=== PATIENT | female | born 1990 | race Caucasian/White ===

== ENCOUNTER 2023-08-22 13:37 | Outpatient (CLI) | payer OTHER ==
[2023-08-22 15:30] LABS: THYROID STIMULATING HORMONE 1.71 uIU/mL (0.34-5.60)
[2023-08-22 20:10] LABS: ESTIMATED AVERAGE GLUCOSE 105 mg/dL (70-100); HEMOGLOBIN A1c% 5.3 % (4.27-6.07)
[2023-08-25 16:08] LABS: BETA-2 GLYCOPROTEIN I IGG <9 (0-20); BETA-2 GLYCOPROTEIN I IGM <9 (0-32); CARDIOLIPIN IGG <9 GPL U/mL (0-14); CARDIOLIPIN IGM <9 MPL U/mL (0-12)
== END 2023-08-22 13:38 | disposition home or self-care (01) ==
LOC: LAB 13:37
PROVIDERS: ATTEND Obstetrics & Gynecology
DX: N96 Recurrent pregnancy loss (principal)
CPT/HCPCS: 36415; 83036; 84443; 85598; 85613; 85732; 86146; 86147

== ENCOUNTER 2023-12-21 08:00 | Outpatient (CLI) | payer OTHER ==
[2023-12-21 17:16] LABS: BILIRUBIN,URINE NEGATIVE (NEGATIVE); GLUCOSE, URINE (UA) NEGATIVE (NEGATIVE); KETONES,URINE (UA) NEGATIVE (NEGATIVE); LEUKOCYTE ESTERASE, URINE TRACE (NEGATIVE); NITRITE,URINE NEGATIVE (NEGATIVE); OCCULT BLOOD,URINE NEGATIVE (NEGATIVE); PROTEIN,URINE NEGATIVE (NEGATIVE); UROBILINOGEN,URINE 0.2 (NORMAL) E.U./dL (NORMAL)
[2023-12-21 17:18] LABS: CLARITY,URINE CLOUDY (CLEAR)
[2023-12-21 17:44] LABS: AMORPHOUS SEDIMENT,UR Marked /LPF; BACTERIA,URINE Many /HPF (None Seen); MUCUS,URINE Marked Strands; RBC,URINE 0-5 /HPF (0-5); SQUAMOUS EPITHELIAL CELL,UR MANY Squamous (<= Few)
[2023-12-22 08:47] LABS: CREATININE,URINE 216.3 mg/dL; PROTEIN/CREATININE RATIO,URINE 0.1 (<=0.2)
== END 2023-12-21 23:59 | disposition home or self-care (01) ==
LOC: LAB 08:00
PROVIDERS: ATTEND Obstetrics & Gynecology
DX: O99.210 Obesity complicating pregnancy, unspecified trimester (principal)
CPT/HCPCS: 81001; 82570; 84156; 87086

== ENCOUNTER 2023-12-27 11:20 | Outpatient (CLI) | payer OTHER ==
[2023-12-27 11:43] LABS: BASOPHILS % (AUTO) 0.2 %; EOSINOPHILS # (AUTO) 0.1 10^3/uL (0.0-0.7); EOSINOPHILS % (AUTO) 1.4 %; HCT - HEMATOCRIT 40.8 % (37.0-47.0); HGB - HEMOGLOBIN 13.6 g/dL (12.0-16.0); LYMPHOCYTES # (AUTO) 1.8 10^3/uL (1.5-3.5); LYMPHOCYTES % (AUTO) 19.4 %; MEAN CORPUSCULAR HEMOGLOBIN 29.4 pg (27.0-31.0); MEAN CORPUSCULAR HGB CONC 33.3 g/dL (32.0-36.0); MEAN CORPUSCULAR VOLUME 88.1 fL (81.0-99.0); MEAN PLATELET VOLUME 11.6 fL (7.9-10.8); MONOCYTES # (AUTO) 0.6 10^3/uL (0.0-1.0); NEUTROPHILS # (AUTO) 6.8 10^3/uL (1.5-6.6); NEUTROPHILS % (AUTO) 72.7 %; PLT - PLATELET COUNT 190 10^3/uL (130-450); RED BLOOD COUNT 4.63 10^6/uL (4.20-5.40); RED CELL DISTRIBUTION WIDTH 13.9 % (12.0-15.0); WHITE BLOOD COUNT 9.3 x10^3/uL (4.8-10.8)
[2023-12-27 11:58] LABS: ALBUMIN 4.4 g/dL (3.2-5.5); ALBUMIN/GLOBULIN RATIO 1.6 (1.0-2.2); BILIRUBIN,TOTAL 0.3 mg/dL (0.2-1.0); CALCIUM 9.4 mg/dL (8.5-10.3); CREATININE 0.5 mg/dL (0.6-1.3); POTASSIUM 3.6 mmol/L (3.5-4.5); TOTAL PROTEIN 7.1 g/dL (6.4-8.9)
[2023-12-27 20:09] LABS: ESTIMATED AVERAGE GLUCOSE 100 mg/dL (70-100); HEMOGLOBIN A1c% 5.1 % (4.27-6.07)
[2023-12-28 02:12] LABS: HBsAG SCREEN Negative (Negative)
[2023-12-28 03:14] LABS: HIV SCREEN 4TH GENERATION Non Reactive (Non Reactive)
[2023-12-28 04:10] LABS: RPR Non Reactive (Non Reactive)
[2023-12-28 09:10] LABS: VARICELLA-ZOSTER AB IGG 1125 index (Immune >165)
== END 2023-12-27 11:21 | disposition home or self-care (01) ==
LOC: LAB 11:20
PROVIDERS: ATTEND Obstetrics & Gynecology
DX: Z34.90 Encounter for supervision of normal pregnancy, unspecified, unspecified trimester (principal)
CPT/HCPCS: 36415; 80053; 83036; 85025; 86592; 86762; 86787; 86803; 86850; 86900; 86901; 87340; 87389

== ENCOUNTER 2024-01-23 08:00 | Outpatient (CLI) | payer OTHER ==
[2024-01-23 22:38] LABS: CHLAMYDIA TRACHOMATIS DNA NEGATIVE (NEGATIVE); NEISSERIA GONORRHOEAE DNA NEGATIVE (NEGATIVE); TRICHOMONAS VAGINALIS DNA NEGATIVE (NEGATIVE)
== END 2024-01-23 23:59 | disposition home or self-care (01) ==
LOC: LAB.WC 08:00
PROVIDERS: ATTEND Obstetrics & Gynecology
DX: Z11.3 Encounter for screening for infections with a predominantly sexual mode of transmission (principal)
CPT/HCPCS: 87491; 87591; 87661

== ENCOUNTER 2024-01-23 18:36 | Outpatient (CLI) | payer OTHER ==
--- NOTE | 2024-01-24 15:44 | Ultrasound Report ---
PROCEDURE: OB 1st Trimester w/TV INDICATIONS: POSITIVE TEST OUTSIDE/PRIOR DATING DATA: Last menstrual period (LMP): 11/07/2023. LMP-based estimated date of delivery (JO): 08/13/2024. First dating scan (date and location): 01/23/2024. Estimated date of delivery (JO) from first dating scan: 08/09/2024. TECHNIQUE: Real-time scanning was performed of the fetus and maternal pelvic organs, with image documentation. Endovaginal scanning was also performed to better visualize the fetus and maternal ovaries. COMPARISON: None. FINDINGS: Intrauterine gestational sac present. A yolk sac is also noted. Embryo: [place]-rump length measures 4.76 cm. Estimated gestational age is 11 weeks, 4 days. 74.6%. Heart rate: 166 bpm. Other: Small subchorionic hemorrhage measures 1.5 x 1.1 x 1.7 cm in size is seen. Measurement variability in dating: +/- 4 weeks by LMP, +/- 7 days by mean sac diameter (use before 6 weeks gestation if crown-rump length not able to be measured), +/- 5 days by crown-rump length (6-12 weeks gestation). Maternal organs: Small left corpus luteal cyst is seen. IMPRESSION: 1. Single live intrauterine gestation with fetus and yolk sac seen. Estimated gestational age is 11 w eeks, 4 days. heart rate is 166 bpm. 2. Small subchorionic hematoma measures 1.5 x 1.1 x 1.7 cm in size. Small left post luteal cyst. No a dnexal mass. Reviewed by: Lambert Jean Baptiste MD on 01/24/2024 3:43 PM PDT Approved by: Lambert Jean Baptiste MD on 01/24/2024 3:43 PM PDT Station ID: [id number]
== END 2024-01-23 18:37 | disposition home or self-care (01) ==
LOC: DI 18:36
PROVIDERS: ATTEND Obstetrics & Gynecology
DX: O20.8 Other hemorrhage in early pregnancy (principal); O34.81 Maternal care for other abnormalities of pelvic organs, first trimester; N83.12 Corpus luteum cyst of left ovary; Z3A.11 11 weeks gestation of pregnancy; Z11.3 Encounter for screening for infections with a predominantly sexual mode of transmission
CPT/HCPCS: 87491; 87591; 87661

== ENCOUNTER 2024-02-19 12:01 | Outpatient (CLI) | payer OTHER ==
[2024-02-19 17:56] LABS: CHLAMYDIA TRACHOMATIS DNA NEGATIVE (NEGATIVE); NEISSERIA GONORRHOEAE DNA NEGATIVE (NEGATIVE); TRICHOMONAS VAGINALIS DNA NEGATIVE (NEGATIVE)
== END 2024-02-19 12:02 | disposition home or self-care (01) ==
LOC: LAB 12:01
PROVIDERS: ATTEND Obstetrics & Gynecology
DX: Z34.90 Encounter for supervision of normal pregnancy, unspecified, unspecified trimester (principal)
CPT/HCPCS: 87491; 87591; 87661

== ENCOUNTER 2024-03-07 15:06 | Emergency (ER) | payer OTHER ==
[2024-03-07 15:23] VITALS: BP 131/73
[2024-03-07 16:27] LABS: B. PARAPERTUSSIS- RESP PCR PAN NOT DETECTED; B. PERTUSSIS- RESP PCR PANEL NOT DETECTED; C. PNEUMONIAE- RESP PCR PANEL NOT DETECTED; CORONAVIRUS 229E-RESP PCR NOT DETECTED; CORONAVIRUS HKU1-RESP PCR NOT DETECTED; CORONAVIRUS NL63-RESP PCR NOT DETECTED; CORONAVIRUS OC43-RESP PCR NOT DETECTED; HUMAN METAPNEUMOVIRUS NOT DETECTED; INFLUENZA A- RESP PCR PANEL NOT DETECTED; INFLUENZA B - RESP PCR PANEL NOT DETECTED; M. PNEUMONIAE- RESP PCR PANEL NOT DETECTED; PARAINFLUENZA VIRUS 1 NOT DETECTED; PARAINFLUENZA VIRUS 2 NOT DETECTED; PARAINFLUENZA VIRUS 3 NOT DETECTED; PARAINFLUENZA VIRUS 4 NOT DETECTED; RHINOVIRUS/ENTEROVIRUS NOT DETECTED; RSV- RESP PCR PANEL NOT DETECTED
[2024-03-07 16:29] LABS: SARS-CoV-2 -RESP PCR PANEL DETECTED
[2024-03-07 16:46] VITALS: O2SAT 4
--- NOTE | 2024-03-07 21:54 | ED Physician Documentation ---
History of Present Illness - Stated complaint Stated Complaint: GEN WEAKNESS,CONGESTED - Chief complaint Chief Complaint: Heent - History obtained from History obtained from: Patient - Additonal information Additional information: 33-year-old female presents with bodyaches, headaches, mild congestion, backache. She is about 17 weeks , but was exposed to her who tested positive for COVID today. The patient works here in the ICU. She has not had any difficulty breathing, no nausea or vomiting, no vaginal bleeding or urinary symptoms. She would like to be tested for COVID today. Review of Systems Constitutional: reports: Fever, Myalgias Ears: reports: Reviewed and negative Nose: reports: Congestion Throat: reports: Reviewed and negative Cardiac: reports: Reviewed and negative Respiratory: reports: Reviewed and negative GI: reports: Reviewed and negative : reports: Now EGA, Reviewed and negative Skin: reports: Reviewed and negative Musculoskeletal: reports: Back pain PD PAST MEDICAL HISTORY - Past Medical History Past Medical History: No Cardiovascular: None Respiratory: None Neuro: None Endocrine/Autoimmune: None GI: None DIGITAL MEDIA MANAGER: None : None HEENT: None Psych: None Musculoskeletal: None Derm: None - Past Surgical History Past Surgical History: Yes General: Cholecystectomy - Present Medications Home Medications: Ambulatory Orders Medication Instructions Recorded Confirmed Aspirin Chewable [[place] 81 mg PO DAILY 03/07/24 Aspirin] Nirmatrelvir/Ritonavir [Paxlovid 1 applic PO BID #20 tab 03/07/24 300-100 mg Dose Pack] - Allergies Allergies/Adverse Reactions: Allergies Allergy/AdvReac Type Severity Reaction Status Date / Time No Known Drug Allergies Allergy Verified 03/07/24 15:18 - Social History Does the pt smoke?: No Smoking Status: Never smoker Does the pt drink ETOH?: No Does the pt have substance abuse?: No - Immunizations Immunizations are current?: Yes - POLST Patient has POLST: No PD ED PE NORMAL - Vitals Vital signs reviewed: Yes - General General: Alert and oriented X 3, No acute distress, Well developed/nourished - HEENT HEENT: Atraumatic, Moist mucous membranes - Neck Neck: Supple, no meningeal sign - Cardiac Cardiac: RRR, No murmur, No gallop, No rub - Respiratory Respiratory: No respiratory distress, Clear bilaterally - Abdomen Abdomen: Normal bowel sounds, Soft, Non tender, Non distended - Back Back: No CVA TTP, No spinal TTP - Derm Derm: Normal color, Warm and dry - Neuro Neuro: Alert and oriented X 3 Eye Opening: Spontaneous Motor: Obeys Commands Verbal: Oriented GCS Score: 15 - Psych Psych: Normal mood, Normal affect Results - Vitals Vitals: Vital Signs - 24 hr 03/07/24 03/07/24 15:11 16:42 Temperature 37.0 C Heart Rate 81 Respiratory 15 16 Rate Blood Pressure 131/73 H O2 Saturation 99 4 L Oxygen O2 Source Room air - Labs Labs: Laboratory Tests 03/07/24 15:20 Nasal Adenovirus (PCR) NOT DETECTED Nasal B. parapertussis DNA (PCR) NOT DETECTED Nasal Coronavir 229E PCR NOT DETECTED Nasal Coronavir HKU1 PCR NOT DETECTED Nasal Coronavir NL63 PCR NOT DETECTED Nasal Coronavir OC43 PCR NOT DETECTED Nasal Enterovir/Rhinovir PCR NOT DETECTED Nasal Influenza B PCR NOT DETECTED Nasal Influenza A PCR NOT DETECTED Nasal Parainfluen 1 PCR NOT DETECTED Nasal Parainfluen 2 PCR NOT DETECTED Nasal Parainfluen 3 PCR NOT DETECTED Nasal Parainfluen 4 PCR NOT DETECTED Nasal RSV (PCR) NOT DETECTED Nasal B.pertussis DNA PCR NOT DETECTED Nasal C.pneumoniae (PCR) NOT DETECTED Darrel Human Metapneumo PCR NOT DETECTED Nasal M.pneumoniae (PCR) NOT DETECTED Nasal SARS-CoV-2 (PCR) DETECTED A PD Medical Decision Making - ED course Complexity details: reviewed results, re-evaluated patient, d/w patient ED course: 33-year-old female who presents with exposure to COVID and subsequently developing body aches, congestion additional symptoms as listed in HPI. Her COVID test today here is positive and this is likely cause of her symptoms. She is not have any Urinary symptoms, no vaginal bleeding, no shortness of breath or other more severe COVID symptoms. I did consider urinary tract infection/pyelonephritis, related issues however patient has been exposed to COVID, and subsequently developed the symptoms which are likely due to COVID. I recommended supportive measures including Tylenol, and discussed [id number] treatments available to her in , getting plenty rest and oral fluids. I also reviewed the use of Paxlovid and COVID in and patient will decide if she wants to take this with a prescription was given. 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 I did review with patient that COVID can be more severe in patients and that if she was having worsening symptoms to return to the ER. Departure - Departure Disposition: 01 Home, Self Care Clinical Impression: COVID-19 Condition: Good Instructions: ED Viral Syndrome Prescriptions: Nirmatrelvir/Ritonavir [Paxlovid 300-100 mg Dose Pack] 1 applic PO BID #20 tab Forms: PCP List Discharge Date/Time: 03/07/24 16:43
== END 2024-03-07 16:43 | disposition home or self-care (01) ==
LOC: ED 15:06
DX: O98.512 Other viral diseases complicating pregnancy, second trimester (principal); U07.1 COVID-19; Z3A.17 17 weeks gestation of pregnancy
CPT/HCPCS: 87633; 99282; 99283

== ENCOUNTER 2024-03-14 19:33 | Outpatient (CLI) | payer OTHER | END 2024-03-14 19:34 | disposition home or self-care (01) | LOC: LAB 19:33 | PROVIDERS: ATTEND Obstetrics & Gynecology | DX: Z34.82 Encounter for supervision of other normal pregnancy, second trimester (principal) | CPT/HCPCS: 36415; 82105 ==

== ENCOUNTER 2024-04-02 07:05 | Outpatient (CLI) | payer OTHER ==
--- NOTE | 2024-04-03 10:04 | Ultrasound Report ---
PROCEDURE: OB Anatomy Scan INDICATIONS: SUPERVISION OF NORMAL OUTSIDE/PRIOR DATING DATA: Last menstrual period (LMP): 11/07/2023. LMP-based estimated date of delivery (JO): 08/13/2024. First dating scan (date and location): 01/23/2024. Estimated date of delivery (JO) from first dating scan: 08/09/2024. The below data below was generated using the working JO of 08/13/2024 TECHNIQUE: Ultrasound of the gravid uterus was performed and recorded. COMPARISON: 01/23/2024 FINDINGS: General: A single live intrauterine gestation is present. Presentation: Variable Placenta: Placental position is fundal/posterior without previa. Amniotic fluid index: 17.1 cm, within normal limits for gestational age. heart rate: 137 beats per minute. Maternal cervical canal: 6.3 cm long; normal length is 2.5 cm or more. biometrics: Biparietal diameter: 5.2 cm, 21 week 4 day, 73 percentile Head circumference: 19.0 cm, 21 week 2 day, 55 percentile Abdominal circumference: 17.1 cm, 20 week 0 day, 76 percentile Femur length: 3.4 cm, 20 week 6 day, 35 percentile Estimated gestational age by working dates: 20 week 0 day Composite gestational age by current ultrasound: 21 week 3 day Estimated weight and percentile: 427 g, 71 percentile Measurement variability in biometric dating: +/- 10 days from 12-20 weeks gestation, +/- 2 weeks from 20-30 weeks gestation, +/- 3 weeks at 30 weeks gestation or more. Anatomic survey: Neuro: Ventricles are non-dilated at less than 10 mm. Cisterna magna is normal at 3-11 mm. Cerebel lum is normal in size and morphology. Nuchal skin fold: Normal at less than 6 mm between 14-20 weeks gestational age. Face: Nose and lips, facial profile are normal. Spine: No evidence for spina bifida. Heart: 4-chambered heart is present, with normal ventricular outflow tracts. Diaphragm: Diaphragm is intact. Stomach: Left-sided stomach is present. Kidneys: No hydronephrosis. Normal is less than 5 mm in 2nd trimester, less than 7 mm in 3rd trimester. Cord: 3-vessel cord has orthotopic insertion. Bladder: Normal in size. Extremities: All 4 extremities identified. Other: Not applicable. IMPRESSION: Single live intrauterine consistent with 21 week 3 day gestation by current ultrasound Normal anatomic survey Reviewed by: Wesley Ward MD on 04/03/2024 9:03 AM DONALDO Approved by: Wesley Ward MD on 04/03/2024 9:03 AM DONALDO Station ID: [id number]
== END 2024-04-02 07:06 | disposition home or self-care (01) ==
LOC: DI 07:05
PROVIDERS: ATTEND Obstetrics & Gynecology
DX: Z34.92 Encounter for supervision of normal pregnancy, unspecified, second trimester (principal)